=== PATIENT | female | born 1965 | race African-American/Black ===

== ENCOUNTER 2022-01-11 13:19 | Emergency (ER) | payer BC, SELFPAY ==
--- NOTE | ~2022-01-11 | XR_ITS ---
XR lumbar spine 2-3V DATE: 01/11/2022 15:19 INDICATION: Back pain, sciatica TECHNIQUE: AP, lateral, coned lateral lumbosacral views COMPARISON: None FINDINGS: There is mild lumbar dextroscoliosis. There is osteopenia. The included lower thoracic and lumbar pedicles are intact. No fracture or bone destruction is eviden t. No spondylolisthesis is noted. There is mild degenerative disc disease at L1-2 and L2-3, moderate degenerative disc disease at L3-4 and severe degenerative disc disease at L4-5 and L5-S1. The sacroiliac joints are intact. Bilateral hip osteoid arthritis. Status post cholecystectomy. IMPRESSION: Mild dextro scoliosis Osteopenia Multilevel degenerative disc disease, severe at L4-5 and L5-S1 Bilateral hip osteoarthritis Reviewed, dictated and finalized at location [facility].
--- NOTE | ~2022-01-11 | US_ITS ---
US venous doppler LE RT DATE: 01/11/2022 15:15 INDICATION: Pain TECHNIQUE: Real-time and color flow imaging and Doppler analysis of the veins of the right lower extr emity COMPARISON: None FINDINGS: There is spontaneous and phasic flow and normal augmentation and color flow signal and norm al compression of the deep veins of the right lower extremity. IMPRESSION: No evidence of deep venous thrombosis of right lower extremity Reviewed, dictated and finalized at [facility]. Reviewed, dictated and finalized at location [facility].
[2022-01-11 13:29] VITALS: BP 156/81; PULSE 77; RESP 18; TEMP 36.4; O2SAT 100
--- NOTE | 2022-01-11 15:07 | PC.NURSE ---
Patient off unit to radiology.
[2022-01-11] MEDS: KETOROLAC (*BKC) 60 MG/2 ML VIAL IM (15:33)
--- NOTE | 2022-01-11 17:04 | ED.GENADULT ---
HPI - General Adult General Chief complaint: Extremity Problem,Nontraumatic Stated complaint: right leg/hip pain Time Seen by Provider: 01/11/22 14:48 History of Present Illness HPI narrative: Patient is a 56-year-old female who presents ER with pain in her right leg and back. Ongoing for 3 days. Began's posterior leg moves into her buttock. No recent injury. No fall or trauma. Denies fevers or chills or sweats. Has not had issues with this before. Has not been taking medications at home for this. Worse with bending and stepping. No focal weakness. Related Data Allergies Allergy/AdvReac Type Severity Reaction Status Date / Time propoxyphene Allergy Mild Itching Verified 01/11/22 14:43 Review of Systems Review of Systems: All systems reviewed & are unremarkable except as noted in HPI and below Constitutional: Constitutional: Denies chills, Denies fatigue and Denies fever(s) Musculoskeletal: Musculoskeletal: Reports back pain, Denies myalgias, Denies arthralgias and Denies joint swelling Integumentary/Breasts: Skin/Breast: Denies erythema and Denies rash Neurologic: Denies syncope, Denies focal weakness and Denies numbness PMFSH Past Medical History Medical History (Updated 01/11/22 @ 17:12 by Rudy Zazueta MD) Healthy female adult Surgical History Surgical History (Updated 01/11/22 @ 17:12 by Rudy Zazueta MD) History of cholecystectomy History of hysterectomy Social History Social History (Updated 01/11/22 @ 17:12 by Rudy Zazueta MD) Smoking status: Current every day smoker Exam Narrative: GENERAL: Well-appearing, well-nourished, and in no acute distress. HEAD: Normocephalic, atraumatic. CHEST: Clear to auscultation. No respiratory distress. HEART: Regular rate and rhythm. Normal peripheral pulses. Back: Tender palpation right SI region without midline tenderness or step-off or bruising or abrasion. No additional tenderness of the T/L-spine. EXTREMITIES: Normal range of motion. No edema. SKIN: Warm, dry, no rash. NEURO: Alert and oriented x3. PSYCH: Normal mood and affect. Course Course Emergency Course: Patient moves around pain-free after Toradol. Informed results. Discussed treatment plan and patient verbalized understanding. Vital Signs Vital signs: Vital Signs Temperature 97.6 F 01/11/22 13:29 Pulse Rate 77 01/11/22 13:29 Respiratory Rate 18 01/11/22 13:29 Blood Pressure 156/81 H 01/11/22 13:29 Pulse Oximetry 100 01/11/22 13:29 Oxygen Delivery Room Air 01/11/22 13:29 Temperature 97.6 F 01/11/22 13:29 Pulse Rate 77 01/11/22 13:29 Respiratory Rate 18 01/11/22 13:29 Blood Pressure 156/81 H 01/11/22 13:29 Pulse Oximetry 100 01/11/22 13:29 Oxygen Delivery Room Air 01/11/22 13:29 Medical Decision Making Vital Signs Vital Signs: Vital Signs Temperature 97.6 F 01/11/22 13:29 Pulse Rate 77 01/11/22 13:29 Respiratory Rate 18 01/11/22 13:29 Blood Pressure 156/81 H 01/11/22 13:29 Pulse Oximetry 100 01/11/22 13:29 Oxygen Delivery Room Air 01/11/22 13:29 Temperature 97.6 F 01/11/22 13:29 Pulse Rate 77 01/11/22 13:29 Respiratory Rate 18 01/11/22 13:29 Blood Pressure 156/81 H 01/11/22 13:29 Pulse Oximetry 100 01/11/22 13:29 Oxygen Delivery Room Air 01/11/22 13:29 Imaging Data Radiologist's impression: ITS Impressions Venous Doppler Study 01/11/22 15:19 IMPRESSION: No evidence of deep venous thrombosis of right lower extremity Lumbar Spine X-Ray 01/11/22 15:20 IMPRESSION: Mild dextro scoliosis Osteopenia Multilevel degenerative disc disease, severe at L4-5 and L5-S1 Bilateral hip osteoarthritis Discharge Plan Discharge Clinical Impression: Sciatica Patient Disposition: Home, Self-Care Condition: Stable Instructions: Sciatica (ED), Lower Back Exercises (ED) Additional Instructions: Return to the ER if you have increased pain
== END 2022-01-11 17:42 | disposition home or self-care (01) ==
PROVIDERS: Emergency Provider Emergency Medicine; PCP Internal Medicine
DX: M54.30 Sciatica, unspecified side (principal)
CPT/HCPCS: 72100; 93971; 96372; 99284; J1885

== ENCOUNTER 2024-04-14 11:12 | Emergency (ER) | payer BC, SELFPAY ==
--- NOTE | ~2024-04-14 | CT_ITS ---
EXAMINATION: CTA brain carotid DATE: 04/14/2024 17:52 INDICATION: Diplopia. Headache. TECHNIQUE: Computed tomographic angiography (CTA) of the head was performed without and with 100 mL O mnipaque-350 intravenous contrast. CTA of the neck was performed with intravenous contrast. Automated exposure control and iterative reconstruction technique were employed. The dose-length product was 1 714.81 mGy-cm. Maximum intensity projection and volume rendered 3D-reconstructions were created by natalya rome technologist on a separate workstation. COMPARISON: None. FINDINGS: HEAD CTA: There are scattered areas of low attenuation in the cerebral white matter. There is an old lacunar infarct in the right caudate nucleus. There is no intracranial hemorrhage, acute infarction, or abnormal intracranial mass lesion. The ventricles are normal in size. There was normal. There is m ild mucosal thickening in the paranasal sinuses. The mastoid air cells are normal. The vertebral [place] mk are codominant. There is no significant stenosis of basilar artery or the posterior cerebral art eries. There is no significant stenosis of intracranial internal carotid arteries or anterior or midd le cerebral arteries. Anterior communicating artery is normal. The posterior communicating arteries a re normal. There is no aneurysm. NECK CTA: There is mild emphysema. There are no pathologically enlarged lymph nodes. There is no sign ificant stenosis of the vertebral arteries. There is plaque in the proximal internal carotid arteries . There is 0% stenosis of the proximal right internal carotid artery relative to normal distal artery lumen diameter (NASCET criteria). There is 0% stenosis of the proximal left internal carotid artery relative to normal distal artery lumen diameter. There is mild cervical spondylosis. IMPRESSION: 1. Old lacunar infarct in the right caudate nucleus. 2. Extensive nonspecific cerebral white matter disease, which likely represents chronic small vessel ischemic disease. 3. No aneurysm or significant intracranial arterial stenosis. 4. 0% stenosis of the proximal internal carotid arteries relative to normal distal artery lumen diame ters (NASCET criteria). Reviewed, dictated and finalized at location [facility]. IMPRESSION: 1. Old lacunar infarct in the right caudate nucleus. 2. Extensive nonspecific cerebral white matter disease, which likely represents chronic small vessel ischemic disease. 3. No aneurysm or significant intracranial arterial stenosis. 4. 0% stenosis of the proximal internal carotid arteries relative to normal dis joshua artery lumen diameters (NASCET criteria).
[2024-04-14 11:16] VITALS: BP 152/74; PULSE 88; RESP 16; TEMP 36.3; O2SAT 99
[2024-04-14 14:05] VITALS: BP 148/77; PULSE 86; RESP 16; TEMP 36.7; O2SAT 100
[2024-04-14 14:15] VITALS: BP 148/86; PULSE 84; RESP 17; TEMP 36.7; O2SAT 100
[2024-04-14 16:02] LABS: Hematocrit 35.8 % (37.0-47.0); Hemoglobin 11.5 g/dL (12.0-15.0); Mean Corpuscular HGB Conc 32.1 g/dl (32-36); Mean Corpuscular Hemoglobin 29.3 pg (26-34); Mean Corpuscular Volume 91.1 fl (80-100); Mean Platelet Volume 9.9 fl (7.4-10.4); Platelet Count Result 252 k/mm3 (150-375); Red Blood Count 3.93 M/mm3 (4.2-5.4); Red Cell Distribution Width 13.9 % (11.5-14.5); White Blood Count 3.9 K/mm3 (4.5-10.0)
[2024-04-14 16:12] LABS: Alanine Aminotransferase 64 U/L (6-35); Albumin Level 4.2 g/dL (3.5-5.1); Alkaline Phosphatase 109 U/L (38-126); Anion Gap 6 mmol/L (4-12); Aspartate Amino Transferase 78 U/L (14-36); Bilirubin,Total 0.4 mg/dL (0.2-1.3); Blood Urea Nitrogen 16 mg/dL (7-17); Carbon Dioxide 31 mmol/L (22-30); Chloride 102 mmol/L (98-107); Estimated CRCL calculation 96 ml/min; Estimated Glomerular Filt Rate > 60; Glucose 105 mg/dL (65-110); Potassium 3.7 mmol/L (3.4-5.0); Sodium 139 mmol/L (137-145)
[2024-04-14] MEDS: KETOROLAC 15 MG/ML VIAL (*BKC) IV PUSH (18:45)
[2024-04-14] MEDS: ACETAMINOPHEN 500 MG TABLET 1000 MG PO (18:45)
[2024-04-14] MEDS: PROCHLORPERAZINE EDISYLATE 10 MG/2 ML VIAL IM (18:47)
[2024-04-14] MEDS: diphenhydrAMINE HCl INJ 50 MG/ML VIAL 25 MG IV PUSH (18:47)
--- NOTE | 2024-04-14 18:52 | ED.GENADULT ---
HPI - General Adult General Chief complaint: Recheck/Abnormal Lab/Rx Stated complaint: ARRIAGA, blurry vision, BP up and down Time Seen by Provider: 04/14/24 14:10 History of Present Illness HPI narrative: This is a 58-year-old female with a hx of psychiatric illness the ED with chief complaint of headache. Patient says she has a tightness around her entire head. She says it is associated with visual changes that she describes as blurriness or double vision. It is not affected by where she is looking. Patient says she has not slept in 2 days. She is also asking for food. Patient is denying fevers chills chest pain difficulty breathing abdominal pain extremity weakness dysarthria dysphagia or loss of coordination. Related Data Allergies Allergy/AdvReac Type Severity Reaction Status Date / Time propoxyphene Allergy Mild Itching Verified 04/14/24 11:13 [facility] Past Medical History Medical History Healthy female adult Surgical History Surgical History History of cholecystectomy History of hysterectomy Social History Social History Smoking status: Current every day smoker Exam Narrative: APPEARANCE: No apparent distress. Head: atraumatic. EYES: EOMI, NOSE: Atraumatic NECK: Trachea midline RESPIRATORY: No increased rate of breathing CARDIOVASCULAR: RRR, ABDOMINAL: Non-distended MUSCULOSKELETAl: No obvious deformities NEURO: Alert. Cranial nerves 2-12 grossly intact. Sensation light touch, motor function cerebellar function intact for 4 extremities. Gait exam was normal. SKIN:: Warm, dry. Normal color PSYCHIATRIC: Normal affect Course Vital Signs Vital signs: Vital Signs Temperature 97.3 F L 04/14/24 11:16 Pulse Rate 88 04/14/24 11:16 Respiratory Rate 16 04/14/24 11:16 Blood Pressure 152/74 H 04/14/24 11:16 Pulse Oximetry 99 04/14/24 11:16 Oxygen Delivery Room Air 04/14/24 11:16 Temperature 98.0 F 04/14/24 14:15 Pulse Rate 84 04/14/24 14:15 Respiratory Rate 17 04/14/24 14:15 Blood Pressure 148/86 H 04/14/24 14:15 Pulse Oximetry 100 04/14/24 14:15 Oxygen Delivery Room Air 04/14/24 14:05 Medical Decision Making MDM Narrative Medical decision making narrative: -Course: 50-year-old female with psychiatric illness presenting with multiple complaints including headache and visual changes. CTA the head and neck showed old strokes but no acute findings. Laboratory studies within normal limits. On re-evaluation the patient says that she would just like some food. When questioned about her vision she says that her vision is now back to normal. She would like to be discharged. Her neurologic exam is normal. Her visual acuity did not show any significant abnormalities. Patient was given food and a migraine cocktail. [facility]. If she develops any other symptoms she can return to the ED for re-evaluation. -DDX includes but is not limited to: Cranial nerve palsy, CVA, retinal detachment, lens detachment, ocular migraine -Co-morbidities complicating care: Psychiatric illness -Social determinants of health: intermediate resident -Independent interpretation of studies: Labs imaging reviewed -Interventions: Compazine, Benadryl, Toradol, Tylenol -Shared decision making / Disposition: Discharged Vital Signs Vital Signs: Vital Signs Temperature 97.3 F L 04/14/24 11:16 Pulse Rate 88 04/14/24 11:16 Respiratory Rate 16 04/14/24 11:16 Blood Pressure 152/74 H 04/14/24 11:16 Pulse Oximetry 99 04/14/24 11:16 Oxygen Delivery Room Air 04/14/24 11:16 Temperature 98.0 F 04/14/24 14:15 Pulse Rate 84 04/14/24 14:15 Respiratory Rate 17 04/14/24 14:15 Blood Pressure 148/86 H 04/14/24 14:15 Pulse Oximetry 100 04/14/24 14:15 Oxygen Delivery Room A
== END 2024-04-14 19:46 | disposition home or self-care (01) ==
PROVIDERS: Emergency Provider Emergency Medicine; PCP Internal Medicine
DX: R51.9 Headache, unspecified (principal); F99 Mental disorder, not otherwise specified; F17.200 Nicotine dependence, unspecified, uncomplicated; Z90.49 Acquired absence of other specified parts of digestive tract; Z90.710 Acquired absence of both cervix and uterus
CPT/HCPCS: 36415; 70496; 70498; 80053; 85025; 96372; 96374; 96375; 99284; A9270; J0780; J1200; J1885; Q9967